=== PATIENT | female | born 1955 | race Asian ===

== ENCOUNTER 2018-03-28 08:34 | Emergency (ER) | payer MEDICAID ==
[~2018-03-28] VITALS: Ht 152.4 cm; Wt 54.4 kg
[~2018-03-28 08:34] MED LIST: NAPROXEN375 M2 ORAL
[2018-03-28 08:45] VITALS: BP 143/80
--- NOTE | 2018-03-28 08:45 | NUR ---
ED Nurse Note: Pt came in due to LLQ abd. pain with multiple episodes of N/V started last night. Denies constipation/diarrhea. Per pt, she startes having pain after she urinates. Pt si AAO x4, ambulatory follows commands with no respiratory distress. VSS.
[2018-03-28] MEDS ORDERED: Ketorolac 30mg Inj IV ONE (09:00)
--- NOTE | 2018-03-28 09:00 | NUR ---
ED Nurse Note: Blood collected and sent.
[2018-03-28 09:17] LABS: APPEARANCE,URINE CLEAR; BILIRUBIN, URINE NEGATIVE (NEGATIVE); GLUCOSE, URINE (UA) NEGATIVE (NEGATIVE); KETONES,URINE 2+ (NEGATIVE); LEUKOCYTE ESTERASE ,URINE 1+ (NEGATIVE); NITRITE,URINE NEGATIVE (NEGATIVE); PH,URINE 8 (4.5-8.0); PROTEIN,URINE 1+ (NEGATIVE); UROBILINOGEN,URINE NORMAL MG/DL (0.0-1.0)
[2018-03-28 09:18] LABS: HEMATOCRIT 39.3 % (37.0-47.0); HEMOGLOBIN 12.9 G/DL (12.0-16.0); MEAN CORPUSCULAR VOLUME 92 FL (80-99); PLATELET COUNT 276 K/UL (150-450); RED BLOOD COUNT 4.26 M/UL (4.20-5.40); RED CELL DISTRIBUTION WIDTH 12.1 % (11.6-14.8); WHITE BLOOD COUNT 9.7 K/UL (4.8-10.8)
[2018-03-28 09:27] LABS: COLOR,URINE YELLOW
[2018-03-28 09:28] LABS: ANION GAP 10 mmol/L (5-15); BLOOD UREA NITROGEN 8 mg/dL (7-18); CALCIUM 8.5 MG/DL (8.5-10.1); CARBON DIOXIDE 25 MMOL/L (21-32); CHLORIDE 104 MMOL/L (98-107); CREATININE 0.7 MG/DL (0.55-1.30); POTASSIUM 3.7 MMOL/L (3.5-5.1); SODIUM 139 MMOL/L (136-145)
[2018-03-28 09:32] LABS: ALANINE AMINOTRANSFERASE 27 U/L (12-78); ALBUMIN 3.7 G/DL (3.4-5.0); ALKALINE PHOSPHATASE 86 U/L (46-116); ASPARTATE AMINO TRANSFERASE 21 U/L (15-37); BILIRUBIN,TOTAL 0.4 MG/DL (0.2-1.0)
--- NOTE | 2018-03-28 09:40 | NUR ---
ED Nurse Note: Pt taken to CT via [facility].
--- NOTE | 2018-03-28 09:50 | NUR ---
ED Nurse Note: Pt back from CT. VSS.
--- NOTE | 2018-03-28 09:54 | Diagnostic Imaging Report ---
EXAM: CT Abdomen and Pelvis Without Intravenous Contrast CLINICAL HISTORY: ABD PAIN TECHNIQUE: Axial computed tomography images of the abdomen and pelvis without intravenous contrast. CTDI is 10.6 mGy and DLP is 521 mGy-cm. One or more of the following dose reduction techniques were used: automated exposure control, adjustment of the mA and/or kV according to patient size, use of iterative reconstruction technique. COMPARISON: No relevant prior studies available. FINDINGS: Lung bases: Mild bibasilar lung atelectasis. ABDOMEN: Liver: A few low-density lesions in the liver, largest 2.3 cm in the right lobe. Gallbladder and bile ducts: Unremarkable. No calcified stones. No ductal dilation. Pancreas: A 7 mm low-density lesion in the body of the pancreas, axial image 36. No ductal dilation. Spleen: Unremarkable. No splenomegaly. Adrenals: Unremarkable. No mass. Kidneys and ureters: 1.4 cm left renal low-density lesion. No obstructing stones. No hydronephrosis. Stomach and bowel: Unremarkable. No obstruction. No mucosal thickening. PELVIS: Appendix: Normal appendix. Bladder: Unremarkable. No stones. Reproductive: 3.9 cm left ovarian cyst. ABDOMEN and PELVIS: Intraperitoneal space: Unremarkable. No free air. No significant fluid collection. Bones/joints: No acute fracture. No dislocation. Soft tissues: Bilateral breast implants. Vasculature: Unremarkable. No abdominal aortic aneurysm. Lymph nodes: Small peripancreatic and marcy hepatis lymph nodes. IMPRESSION: 1. Normal appendix. 2. A few low-density lesions in the liver, largest 2.3 cm in the right lobe. 3. 3.9 cm left ovarian cyst. Consider pelvic ultrasound. 4. A vague 7 mm low-density lesion in the body of the pancreas, axial image 36. No inflammatory changes.
--- NOTE | 2018-03-28 10:07 | Emergency Room Report ---
History of Present Illness General Chief Complaint: Abdominal Pain Source: Patient Present Illness [facility] Patient presents with reports of left upper abdomen left mid abdomen pain onset yesterday patient felt that she had some discomfort urinating today Denies any chest pain denies any vomiting today however reports that yesterday she had vomited Denies any fevers Denies any right-sided pain denies any back pain There is some component of the flank region on the left side Denies any fall or trauma Allergies: Coded Allergies: No Known Allergies (Unverified , 12/17/15) Patient History Past Medical History: see triage record Pertinent Family History: none Now: No Reviewed Nursing Documentation: PMH: Agreed; PSxH: Agreed Nursing Documentation-PMH Past Medical History: No History, Except For Hx Hypertension: Yes Review of Systems All Other Systems: negative except mentioned in HPI Physical Exam Vital Signs Date Time Temp Pulse Resp B/P (MAP) Pulse Ox O2 Delivery O2 Flow Rate FiO2 03/28/18 08:35 98.6 64 20 174/81 98 Room Air Sp02 EP Interpretation: reviewed, normal General Appearance: well appearing, no apparent distress Head: normocephalic, atraumatic Eyes: bilateral eye PERRL, bilateral eye EOMI ENT: hearing grossly normal Neck: supple Respiratory: lungs clear, no retraction, no accessory muscle use Cardiovascular #1: regular rate, rhythm Gastrointestinal: soft, other - Patient subjectively points to left upper quadrant left mid abdomen for the discomfort Genitourinary: no CVA tenderness Musculoskeletal: normal inspection Neurologic: alert, oriented x3 Skin: normal color, no rash Lymphatic: no adenopathy Medical Decision Making Diagnostic Impression: Primary Impression: Abdominal pain Additional Impression: Vomiting ER Course With the history exam and presentation, multiple differentials considered, including but not limited to appendicitis, gastritis, cholecystitis, diverticulitis Patient's blood work is fairly appropriate however CT imaging shows some changes in the body of the pancreas Patient on repeat evaluation remains nauseated Given the continued discomfort the nonspecific findings patient will require further inpatient care Insurance requesting transfer Labs Test 03/28/18 09:08 White Blood Count 9.7 K/UL (4.8-10.8) Red Blood Count 4.26 M/UL (4.20-5.40) Hemoglobin 12.9 G/DL (12.0-16.0) Hematocrit 39.3 % (37.0-47.0) Mean Corpuscular Volume 92 FL (80-99) Mean Corpuscular Hemoglobin 30.4 PG (27.0-31.0) Mean Corpuscular Hemoglobin Concent 32.9 G/DL (32.0-36.0) Red Cell Distribution Width 12.1 % (11.6-14.8) Platelet Count 276 K/UL (150-450) Mean Platelet Volume 6.5 FL (6.5-10.1) Neutrophils (%) (Auto) % (45.0-75.0) Lymphocytes (%) (Auto) % (20.0-45.0) Monocytes (%) (Auto) % (1.0-10.0) Eosinophils (%) (Auto) % (0.0-3.0) Basophils (%) (Auto) % (0.0-2.0) Differential Total Cells Counted 100 Neutrophils % (Manual) 91 % (45-75) Lymphocytes % (Manual) 6 % (20-45) Monocytes % (Manual) 3 % (1-10) Eosinophils % (Manual) 0 % (0-3) Basophils % (Manual) 0 % (0-2) Band Neutrophils 0 % (0-8) Platelet Estimate Adequate Platelet Morphology Normal Red Blood Cell Morphology Normal Urine Color Yellow Urine Appearance Clear Urine pH 8 (4.5-8.0) Urine Specific Harmony 1.010 (1.005-1.035) Urine Protein 1+ (NEGATIVE) Urine Glucose (UA) Negative (NEGATIVE) Urine Ketones 2+ (NEGATIVE) Urine Blood Negative (NEGATIVE) Urine Nitrite Negative (NEGATIVE) Urine Bilirubin Negative (NEGATIVE) Urine Urobilinogen Normal MG/DL (0.0-1.0) Urine Leukocyte Esterase 1+ (NEGATIVE) Urine RBC 0-2 /HPF (0 - 2) Urine WBC 0-2 /HPF (0 - 2) Urine Squamous Epithelial Cells Few /LPF (NONE/OCC) Urine Amorphous Sediment Few /LPF (NONE) Urine Bacteria Occasional /HPF (NONE) Urine Mucus Few /LPF (NONE/OCC) Sodium Level 139 MMOL/L (136-145) Potassium Level 3.7 MMOL/L (3.5-5.1) Chloride Level 104 MMOL/L (98-107) Carbon Dioxide Level 25 MMOL/L (21-32) Anion Gap 10 mmol/L (5-15) Blood Urea Nitrogen 8 mg/dL (7-18) Creatinine 0.7 MG/DL (0.55-1.30) Estimat Glomerular Filtration Rate > 60 mL/min (>60) Glucose Level 125 MG/DL (74-106) Calcium Level 8.5 MG/DL (8.5-10.1) Total Bilirubin 0.4 MG/DL (0.2-1.0) Aspartate Amino Transf (AST/SGOT) 21 U/L (15-37) Alanine Aminotransferase (ALT/SGPT) 27 U/L (12-78) Alkaline Phosphatase 86 U/L (46-116) Troponin I 0.013 ng/mL (0.000-0.056) Total Protein 7.5 G/DL (6.4-8.2) Albumin 3.7 G/DL (3.4-5.0) Globulin 3.8 g/dL Albumin/Globulin Ratio 1.0 (1.0-2.7) Lipase 126 U/L (73-393) CT/MRI/US Diagnostic Results CT/MRI/US Diagnostic Results : Impression CT abdomen pelvisIMPRESSION: 1. Normal appendix. 2. A few low-density lesions in the liver, largest 2.3 cm in the right lobe. 3. 3.9 cm left ovarian cyst. Consider pelvic ultrasound. 4. A vague 7 mm low-density lesion in the body of the pancreas, axial image 36. No inflammatory changes. Last Vital Signs Date Time Temp Pulse Resp B/P (MAP) Pulse Ox O2 Delivery O2 Flow Rate FiO2 03/28/18 08:45 64 18 Room Air 03/28/18 08:45 98.6 143/80 98 Status: improved Disposition: XFER [facility]M HOSP Condition: Improved Referrals: [facility],REFERRING (PCP) Ayden Vela DO Mar 28, 2018 10:07
[2018-03-28 10:30] VITALS: BP 111/71
--- NOTE | 2018-03-28 11:10 | NUR ---
ED Nurse Note: Pt resting on bed and more calm at this time. Reports lesser pain 5/10. VSS.
[2018-03-28 12:30] VITALS: BP 122/76
--- NOTE | 2018-03-28 12:48 | NUR ---
ED Nurse Note: Report given to Viridiana RANDLE of [facility].
[2018-03-28 13:53] VITALS: BP 136/72
--- NOTE | 2018-03-28 13:53 | NUR ---
ED Nurse Note: Report given to [facility]. Pt stable for transfer. VSS. All belongings sent with pt..
== END 2018-03-28 13:53 | disposition short-term general hospital (02) ==
LOC: EMR 08:46 → EDBEDREQ 10:31 → EMR 13:53
DX: R10.12 Left upper quadrant pain (principal); R11.10 Vomiting, unspecified; I10 Essential (primary) hypertension
CPT/HCPCS: 36415; 74176; 80053; 81003; 83690; 84484; 85007; 85025; 93005; 96374; 99284; J1885; J2405